=== PATIENT | male | born 1965 ===

== ENCOUNTER → 2017-09-13 | Outpatient (CLI) | payer BC ==
[~2017-09-13] VITALS: Ht 167.6 cm; Wt 103.5 kg
[~2017-09-13] MED LIST: ASPI81 PO; ATOR40TA28 PO; CHL25 PO; CLOP75 PO; CYAN1TAB44 PO; LOSA25TA21 PO; METO50 PO; OMEG-50 PO
[2017-09-13 09:53] VITALS: BP 129/69
== END | disposition home or self-care (01) ==
LOC: SRCNTR 09:45
PROVIDERS: ATTEND Internal Medicine Cardiovascular Disease
DX: I11.9 Hypertensive heart disease without heart failure (principal); I25.10 Atherosclerotic heart disease of native coronary artery without angina pectoris; E78.5 Hyperlipidemia, unspecified; E66.9 Obesity, unspecified; I25.2 Old myocardial infarction; Z79.82 Long term (current) use of aspirin; Z95.5 Presence of coronary angioplasty implant and graft
CPT/HCPCS: 93005; G0463